=== PATIENT | male | born 1965 | race American Indian/Alaskan Native ===

== ENCOUNTER 2018-04-13 09:59 | Emergency (ER) | payer OTHER ==
[2018-04-13 10:18] VITALS: RESP 18; TEMP 98.6; O2SAT 100
[2018-04-13] MEDS ORDERED: Morphine 4 mg/ml ISec IVP STA (10:23)
[2018-04-13] MEDS ORDERED: Sodium Chloride 0.9% 1,000 ML IV STA (10:24)
--- NOTE | 2018-04-13 10:29 | ED PDOC ---
Arrival/HPI - General Chief Complaint: Dizziness/Lightheaded Time Seen by Provider: 04/13/18 10:07 Historian: Patient - History of Present Illness Narrative History of Present Illness (Text): 04/13/18 10:27 52 y/o male, pmh including chronic lower back pain, nkda, c/o rt. ear feeling fullness and dizziness for the past 3 weeks along with lower back pain x 3 years. Pt. stated that he is hear today because the rt. ear has been feeing fullness, associated with on and off dizziness as room spinning sensation with sudden head movement for the past 3 weeks, associated with decrease hearing, no numbness or tingling, no slurred speech, no night sweat, no rash, no numbness or tingling. Pt. has chronic lower back pain, takes tramadol at home, still having pain, unresolved, 7/10 severity, no urinary or bowel incontinence/ retention, no rash, no urinary symptoms, no change in vision, no other medical or psychological complaints. Past Medical History - Provider Review Nursing Documentation Reviewed: Yes - Psychiatric Hx Substance Use: Yes (stopped 3 weeks ago) - Anesthesia Hx Anesthesia: No Hx Anesthesia Reactions: No Hx Malignant Hyperthermia: No Family/Social History - Physician Review Nursing Documentation Reviewed: Yes Family/Social History: Unknown Family HX Smoking Status: Light Smoker < 10 Cigarettes Daily Hx Alcohol Use: No Hx Substance Use: Yes (stopped 3 weeks ago) Substance used: heroin Allergies/Home Meds Allergies/Adverse Reactions: Allergies No Known Allergies Allergy (Verified 04/13/18 10:14) Review of Systems - Review of Systems Constitutional: absent: Fatigue, Fevers Eyes: absent: Vision Changes ENT: Other (rt. ear fullness). absent: Hearing Changes Respiratory: absent: SOB, Cough Cardiovascular: absent: Chest Pain Gastrointestinal: absent: Abdominal Pain, Diarrhea, Nausea, Vomiting Musculoskeletal: Back Pain. absent: Arthralgias, Myalgias Skin: absent: Rash, Pruritis Neurological: Dizziness. absent: Headache, Focal Weakness, Gait Changes, Speech Changes, Facial Droop Psychiatric: absent: Anxiety, Depression, Suicidal Ideation Physical Exam Vital Signs Reviewed: Yes Vital Signs Temp Pulse Resp BP Pulse Ox 04/13/18 10:00 98.6 F 86 18 110/78 100 Temperature: Afebrile Blood Pressure: Normal Pulse: Regular Respiratory Rate: Normal Appearance: Positive for: Well-Appearing, Non-Toxic Pain Distress: Severe Mental Status: Positive for: Alert and Oriented X 3 - Systems Exam Head: Present: Atraumatic, Normocephalic Pupils: Present: PERRL Extroacular Muscles: Present: EOMI Conjunctiva: Present: Normal Ears: Present: Other (Ears: rt. TM ceruman impaction and unable to visible the TM, lt. TM claudio color and intact, bilateral auditory canals non-erythematous, no mastoid tenderness. ) Mouth: Present: Moist Mucous Membranes Neck: Present: Normal Range of Motion, Trachea Midline. No: MIDLINE TENDERNESS , Paraspinal Tenderness, Lymphadenopathy Respiratory/Chest: Present: Clear to Auscultation, Good Air Exchange. No: Respiratory Distress, Accessory Muscle Use Cardiovascular: Present: Regular Rate and Rhythm, Normal S1, S2. No: Murmurs Abdomen: No: Tenderness, Distention, Peritoneal Signs, Rebound, Guarding Back: Present: Normal Inspection, Paraspinal Tenderness (bilateral paraspinal on the lumbar region, no step off, no rash, SLR test unable perform due to pain , walking with normal gait and posture. ). No: CVA Tenderness, Midline Tenderness Upper Extremity: Present: Normal Inspection, Normal ROM, NORMAL PULSES, Neurovascularly Intact. No: Cyanosis, Edema, Deformity Lower Extremity: Present: Normal Inspection, NORMAL PULSES, Normal ROM, Neurovascularly Intact, Capillary Refill < 2 s. No: Edema, CALF TENDERNESS, Cheikh's Sign, Tenderness, Swelling, Deformity Neurological: Present: GCS=15, CN II-XII Intact, Speech Normal, Motor Func Grossly Intact, Gait Normal, Memory Normal, Other (+[place] pike, no drift, normal gait and posture, no tongue fasciculation, no tremors, no signs of withdrawal. ) Skin: Present: Warm, Dry, Normal Color. No: Rashes Psychiatric: Present: Alert, Oriented x 3, Normal Insight, Normal Concentration Medical Decision Making ED Course and Treatment: 04/13/18 10:32 -labs/ua/uds -ekg -CT head/lumbar spine -IVF/meclizine/toradol/morphine/lidoderm -Observe and reassess 04/13/18 14:02 -Rt. ear irrigated with normal saline 20cc, re-examined show the following: Ears : bilateral TMs claudio color and intact, bilateral auditory canals non- erythematous, no mastoid tenderness. -Orthostatic show BP systolic decreased by 21, IVF ordered and given, asympotomatic, dizziness resolved, walking with normal gait and posture, repeated orthostatic v/s with significant improvement. -CT Head: No acute intracranial abnormalities. No significant findings to account for the clinical presentation. -CT L Spine: No focal disc herniations. Multiple bulging annuli most prominent at L2-3. -RLE Venuous doppler: as per preliminary report, no acute DVT -EKG: NSR @ 71 BPM, no ST elevation or depression, no T wave inversion -Labs show no acute findings, troponin is negative -UA show +UTI, IV rocephine ordered. -UDS show negative -Pt is asymptomatic, feeling much better, walking with normal gait and posture, walking with cane he has for the past 4 years, request sleeping aid to take at home at night as needed. -Pt. want another dose of pain med prior to discharge, percocet ordered. -Case discussed with Dr. Painter including labs/radiology result, he agreed on the treatment and dispo plan. -Discharge home with macrobid, meclizine, naproxen, lidoderm patch, melatonin, bed rest, follow up with your own pmd/neurologist/orthopedic/pain management within 2 days, return to the ER for any new or worsening signs or symptoms. - Lab Interpretations Lab Results: 04/13/18 10:50 04/13/18 10:50 Lab Results 04/13/18 11:00: Urine Color Yellow, Urine Appearance Clear, Urine pH 6.0, Ur Specific [place] 1.010, Urine Protein Negative, Urine Glucose (UA) Negative, Urine Ketones Negative, Urine Blood Negative, Urine Nitrate Negative, Urine Bilirubin Negative, Urine Urobilinogen 0.2, Ur Leukocyte Esterase Small H, Urine RBC 0 - 2, Urine WBC 5 - 10, Ur Epithelial Cells 0 - 2, Urine Bacteria Mod 04/13/18 11:00: Urine Opiates Screen Negative, Urine Methadone Screen Negative, Ur Barbiturates Screen Negative, Ur Phencyclidine Scrn Negative, Ur Amphetamines Screen Negative, U Benzodiazepines Scrn Negative, U Oth Cocaine Metabols Negative, U Cannabinoids Screen Negative 04/13/18 10:50: Sodium 148, Potassium 3.9, Chloride 109 H, Carbon Dioxide 27, Anion Gap 16, BUN 18, Creatinine 0.7 L, Est GFR ( Amer) > 60, Est GFR ( Non-Af Amer) > 60, Random Glucose 107, Calcium 9.9, Magnesium 2.0, Total Bilirubin 0.3, AST 27, ALT 24, Alkaline Phosphatase 75, Lactate Dehydrogenase 388, Total Creatine Kinase 113, Troponin I < 0.01, Total Protein 7.9, Albumin 4.4, Globulin 3.4, Albumin/Globulin Ratio 1.3 04/13/18 10:50: WBC 9.7, RBC 4.91, Hgb 14.4, Hct 42.2, MCV 85.9, MCH 29.3, MCHC 34.1, RDW 14.3, Plt Count 341, MPV 9.1, Gran % 48.2 L, Lymph % (Auto) 44.6 H, Evans % (Auto) 6.4 H, Eos % (Auto) 0.6 L, Baso % (Auto) 0.2, Gran # 4.68, Lymph # (Auto) 4.3 H, Evans # (Auto) 0.6, Eos # (Auto) 0.1, Baso # (Auto) 0.02 I have reviewed the lab results: Yes - RAD Interpretation Radiology Orders: 04/13/18 10:23 HEAD W/O CONTRAST [CT] Stat LUMBAR SPINE W/O CONTRAST [CT] Stat 04/13/18 10:53 DUPLEX LOWER EXTRM VEIN RIGHT [US] Stat RLE Venuou Doppler: as per preliminary report, no acute DVT CT Head: PROCEDURE: CT HEAD WITHOUT CONTRAST. HISTORY: dizziness x 3 weeks COMPARISON: None available. TECHNIQUE: Axial computed tomography images were obtained through the head/brain without intravenous contrast. Radiation dose: Total exam DLP = 925.22 mGy-cm. This CT exam was performed using one or more of the following dose reduction techniques: Automated exposure control, adjustment of the mA and/or kV according to patient size, and/or use of iterative reconstruction technique. FINDINGS: HEMORRHAGE: No intracranial hemorrhage. BRAIN: No mass effect or edema. No atrophy or chronic microvascular ischemic changes. VENTRICLES: Unremarkable. No hydrocephalus. CALVARIUM: Unremarkable. PARANASAL SINUSES: Unremarkable as visualized. No significant inflammatory changes. MASTOID AIR CELLS: Unremarkable as visualized. No inflammatory changes. OTHER FINDINGS: None. IMPRESSION: No acute intracranial abnormalities. No significant findings to account for the clinical presentation. CT Lumbar spine: PROCEDURE: CT Lumbar Spine without contrast HISTORY: Lower back pain radiating to LE for x 3 years COMPARISON: None. TECHNIQUE: Axial computed tomography images were obtained of the lumbar spine without the use of intravenous contrast. Coronal and sagittal reformatted images were created and reviewed. Radiation dose: Total exam DLP = 1108.23 mGy-cm. This CT exam was performed using one or more of the following dose reduction techniques: Automated exposure control, adjustment of the mA and/or kV according to patient size, and/or use of iterative reconstruction technique. FINDINGS: VERTEBRAE: Unremarkable. No fracture. Normal alignment. DISCS/SPINAL CANAL/NEURAL FORAMINA: L1-2: Unremarkable. L2-3: Bulging annulus without focal disc herniation. L3-4: Bulging annulus without focal disc herniation. L4-5: Mild bulging annulus. No focal disc herniation. L5-S1: Disc degenerative change including vacuum disc phenomenon. PARASPINAL SOFT TISSUES: Unremarkable. OTHER FINDINGS: None. IMPRESSION: No focal disc herniations. Multiple bulging annuli most prominent at L2-3. Water Treatment Technician: Radiologist - EKG Interpretation EKG Interpretation (Text): 04/13/18 11:54 -EKG: NSR @ 71 BPM, no ST elevation or depression, no T wave inversion Interpreted by ED Physician: Yes Type: 12 lead EKG - Medication Orders Current Medication Orders: Ceftriaxone Sodium (Rocephin 1 Gram Ivpb) 1 gm in 100 mls @ 200 mls/hr IVPB STAT STA PRN Reason: Protocol Stop: 04/13/18 14:30 Sodium Chloride (Sodium Chloride 0.9%) 500 mls @ 999 mls/hr IV .Q31M STA Stop: 04/13/18 14:31 Discontinued Medications Sodium Chloride (Sodium Chloride 0.9%) 1,000 mls @ 999 mls/hr IV .Q1H1M STA Stop: 04/13/18 11:24 Last Admin: 04/13/18 10:48 Dose: 999 mls/hr eMAR Start Stop Document 04/13/18 10:48 EQ (Rec: 04/13/18 10:48 EQ [id number]) Intravenous Solution Start Date 04/13/18 Start Time 10:48 Ketorolac Tromethamine (Toradol) 30 mg IVP STAT STA Stop: 04/13/18 10:24 Last Admin: 04/13/18 10:48 Dose: 30 mg MAR Pain Assessment Document 04/13/18 10:48 EQ (Rec: 04/13/18 10:48 EQ [id number]) Pain Reassessment Is this a pain reassessment? No Sleep Is patient sleeping during reassessment? No Presence of Pain Presence of Pain Yes IVP Administration Document 04/13/18 10:48 EQ (Rec: 04/13/18 10:48 EQ [id number]) Charges for Administration # of IVP Administrations 1 Meclizine HCl (Antivert) 50 mg PO STAT STA Stop: 04/13/18 10:24 Last Admin: 04/13/18 10:47 Dose: 50 mg Morphine Sulfate (Morphine) 4 mg IVP STAT STA Stop: 04/13/18 10:24 Last Admin: 04/13/18 10:47 Dose: 4 mg MAR Pain Assessment Document 04/13/18 10:47 EQ (Rec: 04/13/18 10:47 EQ [id number]) Pain Reassessment Is this a pain reassessment? No Sleep Is patient sleeping during reassessment? No Presence of Pain Presence of Pain Yes IVP Administration Document 04/13/18 10:47 EQ (Rec: 04/13/18 10:47 EQ [id number]) Charges for Administration # of IVP Administrations 1 - PA / CERTIFIED NURSE AIDE / Resident Statement MD/DO has reviewed & agrees with the documentation as recorded. Disposition/Present on Arrival - Present on Arrival Any Indicators Present on Arrival: No History of DVT/PE: No History of Uncontrolled Diabetes: No Urinary Catheter: No History of Decub. Ulcer: No History Surgical Site Infection Following: None - Disposition Have Diagnosis and Disposition been Completed?: Yes Diagnosis: Orthostatic hypotension, Cerumen impaction, UTI (urinary tract infection), Chronic back pain, Insomnia Disposition: HOME/ ROUTINE Disposition Time: 10:34 Patient Plan: Discharge Patient Problems: Current Active Problems Problem Status Onset Orthostatic hypotension Acute Cerumen impaction Acute UTI (urinary tract infection) Acute Chronic back pain Acute Insomnia Acute Condition: IMPROVED Additional Instructions: -Discharge home with macrobid, meclizine, naproxen, lidoderm patch, melatonin, bed rest, follow up with your own pmd/neurologist/orthopedic/pain management within 2 days, return to the ER for any new or worsening signs or symptoms. Prescriptions: Lidocaine 5% [Lidoderm] 1 patch TOP DAILY PRN #14 patch PRN Reason: Other Melatonin 5 mg PO DAILY PRN #7 tablet PRN Reason: Other Naproxen 500 mg PO BID #20 tablet Nitrofurantoin Macrocrystals [Macrobid] 100 mg PO BID #14 cap Referrals: Laureen Frey MD [Primary Care Provider] - Follow up with primary Jose De Jesus Pollard MD [Staff Provider] - Follow up with primary Garfield Moseley MD [Staff Provider] - Follow up with primary Teresa Mandujano MD [Staff Provider] - Follow up with primary Forms: WORK NOTE
[2018-04-13 11:11] LABS: BASO # 0.02 K/mm3 (0.0-2.0); BASO % 0.2 % (0.0-3.0); EOS # 0.1 (0.0-0.7); EOS % 0.6 % (1.5-5.0); GRAN # 4.68 (1.4-6.5); GRAN % 48.2 % (50.0-68.0); HEMOGLOBIN 14.4 g/dL (14.0-18.0); LYMPH # 4.3 (1.2-3.4); LYMPH % 44.6 % (22.0-35.0); MEAN CELL VOLUME 85.9 fl (80.0-105.0); MEAN CORPUSCULAR HEMOGLOBIN 29.3 pg (25.0-35.0); MEAN CORPUSCULAR HGB CONC 34.1 g/dl (31.0-37.0); MEAN PLATELET VOLUME 9.1 fl (7.0-11.0); MONO # 0.6 (0.1-0.6); MONO % 6.4 % (1.0-6.0); RBC 4.91 10^6/uL (3.5-6.1); RED CELL DISTRIBUTION WIDTH 14.3 % (11.5-14.5); WHITE BLOOD COUNT 9.7 10^3/ul (4.5-11.0)
[2018-04-13 11:17] LABS: ALB/GLOB RATIO 1.3 (1.1-1.8); ALBUMIN 4.4 g/dL (3.0-4.8); ALT/SGPT 24 U/L (7-56); AST/SGOT 27 U/L (17-59); BLOOD UREA NITROGEN 18 mg/dL (7-21); CALCIUM 9.9 mg/dL (8.4-10.5); GFR AFRICAN-AMERICAN > 60; GFR NON-AFRICAN AMERICAN > 60
[2018-04-13 11:17] LABS: URINE BILIRUBIN NEGATIVE (NEGATIVE); URINE BLOOD NEGATIVE (NEGATIVE); URINE GLUCOSE (UA) NEGATIVE (NEGATIVE); URINE LEUKOCYTE ESTERASE SMALL Leu/uL (NEGATIVE); URINE PROTEIN NEGATIVE mg/dL (<30 mg/dL); URINE UROBILINOGEN 0.2 E.U./dL (<1 E.U./dL)
[2018-04-13 11:23] LABS: URINE APPEARANCE CLEAR (CLEAR); URINE COLOR YELLOW (YELLOW)
[2018-04-13 11:28] LABS: TROPONIN I < 0.01 ng/mL
[2018-04-13 11:37] LABS: URINE BACTERIA MOD (NEG); URINE EPITHELIAL CELLS 0 - 2 /hpf (0-5); URINE RBC 0 - 2 /hpf (0-2)
--- NOTE | 2018-04-13 11:39 | CT ---
PROCEDURE: CT HEAD WITHOUT CONTRAST. HISTORY: dizziness x 3 weeks COMPARISON: None available. TECHNIQUE: Axial computed tomography images were obtained through the head/brain without intravenous contrast. Radiation dose: Total exam DLP = 925.22 mGy-cm. This CT exam was performed using one or more of the following dose reduction techniques: Automated exposure control, adjustment of the mA and/or kV according to patient size, and/or use of iterative reconstruction technique. FINDINGS: HEMORRHAGE: No intracranial hemorrhage. BRAIN: No mass effect or edema. No atrophy or chronic microvascular ischemic changes. VENTRICLES: Unremarkable. No hydrocephalus. CALVARIUM: Unremarkable. PARANASAL SINUSES: Unremarkable as visualized. No significant inflammatory changes. MASTOID AIR CELLS: Unremarkable as visualized. No inflammatory changes. OTHER FINDINGS: None. IMPRESSION: No acute intracranial abnormalities. No significant findings to account for the clinical presentation.
--- NOTE | 2018-04-13 11:42 | CT ---
PROCEDURE: CT Lumbar Spine without contrast HISTORY: Lower back pain radiating to LE for x 3 years COMPARISON: None. TECHNIQUE: Axial computed tomography images were obtained of the lumbar spine without the use of intravenous contrast. Coronal and sagittal reformatted images were created and reviewed. Radiation dose: Total exam DLP = 1108.23 mGy-cm. This CT exam was performed using one or more of the following dose reduction techniques: Automated exposure control, adjustment of the mA and/or kV according to patient size, and/or use of iterative reconstruction technique. FINDINGS: VERTEBRAE: Unremarkable. No fracture. Normal alignment. DISCS/SPINAL CANAL/NEURAL FORAMINA: L1-2: Unremarkable. L2-3: Bulging annulus without focal disc herniation. L3-4: Bulging annulus without focal disc herniation. L4-5: Mild bulging annulus. No focal disc herniation. L5-S1: Disc degenerative change including vacuum disc phenomenon. PARASPINAL SOFT TISSUES: Unremarkable. OTHER FINDINGS: None. IMPRESSION: No focal disc herniations. Multiple bulging annuli most prominent at L2-3.
[2018-04-13 11:44] LABS: BARBITURATES, UR NEGATIVE (NEGATIVE); BENZODIAZEPINES, UR NEGATIVE (NEGATIVE); OPIATES, UR NEGATIVE (NEGATIVE); PHENCYCLIDINE, UR NEGATIVE (NEGATIVE)
--- NOTE | 2018-04-13 13:03 | CARD ---
APPROVED REPORT EKG Measurement Heart [id number] <Conclusion> Normal sinus rhythm Normal ECG
[2018-04-13] MEDS ORDERED: cefTRIAXone 1 gm 1 GM/100 ML BAG IVPB STA (14:01)
[2018-04-13] MEDS ORDERED: Sodium Chloride 0.9% 500 ML IV STA (14:01)
[2018-04-13] MEDS ORDERED: Oxycodone/Acetaminophen 5/325 mg Tab PO STA (14:14)
[2018-04-13 14:53] VITALS: BP 134/86; PULSE 54
--- NOTE | 2018-04-13 19:15 | US ---
PROCEDURE: Right lower extremity venous US HISTORY: Leg pain and swelling. Evaluate for DVT. PHYSICIAN(S): Geovany Booth M.D. TECHNIQUE: Duplex sonography and color-flow Doppler with graded compression were used to evaluate the deep venous system of the right lower extremity. FINDINGS: The visualized deep venous system of the right lower extremity is sonographically normal and compressible. Normal waveforms and augmentation are seen. There is no sonographic evidence for deep venous thrombosis in the visualized segments of the right lower extremity. IMPRESSION: 1. No sonographic evidence for deep venous thrombosis in the visualized segments of the right lower extremity.
== END 2018-04-13 15:21 | disposition home or self-care (01) ==
LOC: ED 09:59
DX: I95.1 Orthostatic hypotension (principal); H61.21 Impacted cerumen, right ear; N39.0 Urinary tract infection, site not specified; M54.9 Dorsalgia, unspecified; G89.29 Other chronic pain; G47.00 Insomnia, unspecified
CPT/HCPCS: 70450; 72131; 80053; 80324; 80345; 80346; 80349; 80353; 80358; 80361; 81001; 82550; 83615; 83735; 83992; 84484; 85025; 87086; 93005; 93971; 96374; 96375; 99285; J0696; J1885; J2270; J7040